=== PATIENT | male | born 2000 | race Caucasian/White ===

== ENCOUNTER 2020-11-03 13:09 | Outpatient (REF) | payer BC, SELFPAY | END 2020-11-03 13:10 | disposition home or self-care (01) | LOC: HO.LAB 13:09 | PROVIDERS: Visit Provider Internal Medicine | DX: Z20.822 Contact with and (suspected) exposure to COVID-19 (principal) | CPT/HCPCS: 36415; C9803; U0003 ==

== ENCOUNTER 2022-11-27 12:09 | Outpatient (REF) | payer BC, SELFPAY ==
[2022-11-27 14:50] LABS: Adenovirus F 40/41 Not Detected (Not Detect.); Astrovirus Not Detected (Not Detect.); Cryptosporidium Not Detected (Not Detect.); Cyclospora cayetanensis Not Detected (Not Detect.); E. coli EAEC Not Detected (Not Detect.); E. coli EPEC Not Detected (Not Detect.); E. coli ETEC Detected (Not Detect.); E. coli STEC Not Detected (Not Detect.); Entamoeba histolytica Not Detected (Not Detect.); Giardia lamblia Not Detected (Not Detect.); Norovirus GI/GII Not Detected (Not Detect.); Plesiomonas shigelloides Not Detected (Not Detect.); Rotavirus A Not Detected (Not Detect.); Salmonella Not Detected (Not Detect.); Sapovirus Not Detected (Not Detect.); Shigella sp./EIEC Not Detected (Not Detect.); Vibrio Not Detected (Not Detect.); Vibrio Cholerae Not Detected (Not Detect.); Yersinia enterocolitica Not Detected (Not Detect.)
[2022-11-27 15:03] LABS: Campylobacter Detected (Not Detect.)
== END 2022-11-27 12:10 | disposition home or self-care (01) ==
LOC: HO.LNP 12:09
PROVIDERS: Visit Provider Nurse Practitioner Family
DX: R19.7 Diarrhea, unspecified (principal)
CPT/HCPCS: 87507

== ENCOUNTER → 2022-12-11 13:32 | Outpatient (BNVA) | payer OTHER, SELFPAY | PROVIDERS: Visit Provider Physician Assistant Medical | DX: S50.852A Superficial foreign body of left forearm, initial encounter (principal); W45.8XXA Other foreign body or object entering through skin, initial encounter | CPT/HCPCS: 73090; 99203 ==

== ENCOUNTER → 2022-12-18 09:51 | Outpatient (BNVA) | payer OTHER, SELFPAY | PROVIDERS: Visit Provider Physician Assistant Medical | DX: M60.232 Foreign body granuloma of soft tissue, not elsewhere classified, left forearm (principal) | CPT/HCPCS: 99213 ==

== ENCOUNTER → 2022-12-20 08:53 | Outpatient (BNVA) | payer OTHER, SELFPAY | PROVIDERS: Visit Provider Surgery | DX: M79.5 Residual foreign body in soft tissue (principal) | CPT/HCPCS: 99202 ==

== ENCOUNTER → 2024-06-10 08:23 | Outpatient (BNVA) | payer OTHER, SELFPAY | PROVIDERS: Visit Provider Physician Assistant Medical | DX: S60.021A Contusion of right index finger without damage to nail, initial encounter (principal); S60.031A Contusion of right middle finger without damage to nail, initial encounter; W22.8XXA Striking against or struck by other objects, initial encounter | CPT/HCPCS: 73110; 73130; 99203 ==

== ENCOUNTER → 2024-07-01 07:57 | Outpatient (BNVA) | payer OTHER, SELFPAY | PROVIDERS: PCP Physician Assistant; Visit Provider Physician Assistant Medical | DX: S60.021D Contusion of right index finger without damage to nail, subsequent encounter (principal); S60.031D Contusion of right middle finger without damage to nail, subsequent encounter; W22.8XXD Striking against or struck by other objects, subsequent encounter | CPT/HCPCS: 99213 ==

== ENCOUNTER → 2024-07-22 07:53 | Outpatient (BNVA) | payer OTHER, SELFPAY | PROVIDERS: PCP Physician Assistant; Visit Provider Physician Assistant Medical | DX: S60.021D Contusion of right index finger without damage to nail, subsequent encounter (principal); S60.031D Contusion of right middle finger without damage to nail, subsequent encounter; W22.8XXD Striking against or struck by other objects, subsequent encounter | CPT/HCPCS: 99213 ==

== ENCOUNTER 2024-07-23 07:30 | Outpatient (RCR) | payer OTHER, SELFPAY ==
--- NOTE | 2024-06-25 08:50 | MHC.OT.EP ---
[address] [phone] Occupational Therapy Plan of Care Patient Name: Kedar Blevins Date of Evaluation: 06/25/24 Diagnosis: Right Hand Contusion Pain Location: Pain free at rest 7/10 sharp pain w/ forceful use Constant pain while working Tenderness over volar D2 MCP Pain Score: 6 Pain Scale Used: Numeric (0 - 10) Aggravating Factors: Gripping, forceful use Alleviating Factors: Rest Assessment: 24 yo male was at work, using a heavy steel bar at work to clean a drain, injured finger w/ persistent pain in finger, worsening over the past couple months. He was seen in [facility], x-ray (-) for acute fracture. He has been referred to OT for conservative management of right hand strain/contusion. On assessment today, he has good range in index finger, mild edema noted volarly w/ decreased gross grasp (98lb right 125lb left) and tenderness over volar index base. We will continue hand therapy for management of pain and inflammation w/ goal of full pain free use of right hand w/ work and home tasks. Frequency and Duration: The patient will be seen 2x/wk for 3 weeks Short Term Goals: Pt to report ease w/ gripping work tools Pt to demo gross grasp >120lb w/ minimal discomfort Ind w/ heat/cold modalities Ind w/ self massage Nursing Home Goals: Treatment Plan: Therapeutic Exercise Therapeutic Activity Home Exercise Program Splinting Patient Education Edema Control ADL Training Ultrasound Paraffin Fluidotherapy MHP Cold Packs Joint Mobilization Soft Tissue Mobilization Consider nighttime MCP block orthosis for rest Electronically Signed By: DONNELL Huynh/L CHT Please Sign and return to therapist. Thank you once again for your referral.
--- NOTE | 2024-08-11 11:49 | MHC.OT.DC ---
[address] [phone] F: [phone] Occupational Therapy Discharge Note Patient Name: Kedar Blevins Provider: Shobha Correa PA-C Diagnosis: Right Hand Contusion Date of Evaluation: 06/25/24 Date of Discharge: 08/11/24 Treatments to Date: 9 Discharge Status: Recommend MD Follow-up Discharge Summary: Kedar was referred to OT w/ right hand contusion. He has been doing fairly well w/ modifications and resting digit/hand, but continued to have pain present that has been limiting work and daily activities.. He continues to have lower relationship counselor strength with no significant manager exchange past couple weeks. He has been referred to a hand surgeon and we will d/c from OT services at this time pending further recommendations. Electronically Signed By: Nessa Lanier OTR/Saniya CHT Please Sign and return to therapist, thank you for your referral.
== END 2024-08-11 11:50 | disposition home or self-care (01) ==
LOC: HO.OT 07:30
PROVIDERS: PCP Physician Assistant; Visit Provider Physician Assistant Medical
DX: S60.221D Contusion of right hand, subsequent encounter (principal)
CPT/HCPCS: 97035; 97110; 97140; 97165; 97760

== ENCOUNTER 2024-08-24 08:16 | Outpatient (AMB) | payer OTHER, SELFPAY ==
--- NOTE | 2024-08-24 08:18 | A.OFFVIS_ITS ---
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 Patient was at work on 12/14/23, he was using a prybar to unclog a drain when it smashed at the base 2nd and 3rd metacarpal. Patient was initially seen with the [facility] who prescribed a of OT and use of splint. Patient reports that splinting was mildly helpful for the first 2 weeks of use but seems as though he has plateaued, but has persistent pain and weakness of the 2nd & 3rd digits. Denies numbness and tingling. He also mentions about a 5 year history of intermittent bilateral hand cramping, when his hands cramp they remain locked for about 2 minutes before they release. This did happen for quite some time prior to this work injury, but he has had no previous treatment/evaluation for this. We did discuss possibly meeting with PCP for bloodwork. He is currently at work, with instructions of limiting use of the right hand with occasional rest periods. He is not taking anything for his pain. 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 The patient reports that on that date, he was looking to unclog a pipe, in the instrument that he was using slammed back onto his right hand, particularly the 2nd and 3rd MCP joints of the right hand. Patient reports that he began to experience significant discomfort at that time, and then he felt this restricted his hand range of motion significantly. The patient states that for quite some time, he was not evaluated as he felt this would resolve on its own. However, the patient was still experiencing significant pain approximately 3 months later. Patient was evaluated at the [facility], where x-rays were taken and were negative. Today, the patient reports that the pain in the right 3rd metacarpal and MCP joint has resolved completely, but that he is still experiencing significant discomfort in the 2nd MCP joint. Patient reports numbness or tingling of the right hand, worst when he is working overhead. No other acute complaints or concerns at this time. [facility] Medical History (Updated 08/24/24 @ 12:41 by JENIFER Plata) Esophagitis (~09/2022) Social History (Updated 08/24/24 @ 08:28 by Almaz Rivas CMA) Alcohol intake: never Patient Tobacco Use Status: Never used Tobacco Current occupational status: employed Current occupation: Backend Developer Review of Systems Const All systems reviewed & are unremarkable except as noted in HPI and below Physical Exam Vital Signs: BMI result Body Mass Index 23.1 Extrem Other: Patient is alert, oriented, and in no acute distress. Neuro: Normal sensation of the tips of all digits of the [] hand at this time Vascular: Cap refill brisk Pain: Patient reports mild to moderate tenderness to palpation of the volar 2nd MCP joint and distal 2nd metacarpal of the right hand No tenderness to palpation of the 3rd metacarpal head, shaft, or MCP joint ROM: Patient is able to make a closed fist and extend all digits Skin: No lacerations or abrasions. General: No ecchymosis, erythema, or evidence of infection. Psych: Appears grossly normal Affect normal Attitude cooperative Results Reviewed Results Reviewed: X-rays obtained in the [facility] and independently reviewed by me, Roel Joyce PA-C, demonstrate no fracture or acute bony abnormality of the right hand. Assessment & Plan Assessment & Plan (1) Pain in right hand: Code(s): M79.641 - Pain in right hand Category: Medical (2) Numbness and tingling of right hand: Code(s): R20.0 - Anesthesia of skin; R20.2 - Paresthesia of skin Category: Medical Plan 1. Right hand pain Worst on the 2nd metacarpal head, distal metacarpal shaft, and MCP joint Ongoing since injury in November Patient is educated that I feel that this injury is likely a crush injury of the soft tissues of the right hand, and then he is having a prolonged recovery, as can be expected with crush injuries. At this time, patient was referred to occupational therapy for range of motion, strengthening of the right hand, as the patient felt that this did help him when he went earlier this year Patient will follow-up in 6 weeks for [id number] check and reassessment, sooner with any acute concerns 2. Numbness and tingling of right hand Symptoms intermittent, daily, worse at night Worst with overhead motion Patient is referred for EMG and nerve conduction study to assess health of the right upper extremity Patient is amenable to this plan Patient will follow-up after EMG and nerve conduction study for results review and discussion of further treatment options if indicated, sooner with any acute concerns Orders: Orders OT Evaluation and Treatment Today M79.641 - Pain in right hand NE nerve conduction velocity Today R20.0 - Anesthesia of skin, R20.2 - Paresthesia of skin NE electromyogram (EMG) Today R20.0 - Anesthesia of skin, R20.2 - Paresthesia of skin Coding Level of Care Code New Pt Level 3 (78274) Diagnoses Pain in right hand M79.641 Numbness and tingling of right hand R20.0; R20.2
[2024-08-24 08:25] VITALS: BMI 23.1
== END 2024-08-24 08:52 | disposition home or self-care (01) ==
LOC: HO.HOS 08:17
PROVIDERS: PCP Physician Assistant
DX: M79.641 Pain in right hand (principal); R20.0 Anesthesia of skin; R20.2 Paresthesia of skin
CPT/HCPCS: 99203

== ENCOUNTER → 2024-08-24 08:16 | Outpatient (BNVA) | payer OTHER, SELFPAY | PROVIDERS: PCP Physician Assistant | DX: M79.641 Pain in right hand (principal); R20.0 Anesthesia of skin; R20.2 Paresthesia of skin | CPT/HCPCS: 99202 ==

== ENCOUNTER → 2024-08-30 08:27 | Outpatient (BNVA) | payer OTHER, SELFPAY | PROVIDERS: PCP Physician Assistant; Visit Provider Physician Assistant Medical | DX: S00.83XA Contusion of other part of head, initial encounter (principal); W20.8XXA Other cause of strike by thrown, projected or falling object, initial encounter | CPT/HCPCS: 12001; 70200; 99204 ==

== ENCOUNTER 2024-09-15 08:18 | Outpatient (REF) | payer OTHER, SELFPAY ==
--- NOTE | 2024-09-15 08:21 | EMG_ITS ---
Chief complaint: Right hand/forearm pain, right hand numbness Reason for referral: Evaluate for Carpal Tunnel Syndrome or radiculopathy Referred by: Roel BURGESS Procedure done: Right upper extremity NCS/EMG Precautions and/or limitations: None The limb temperature was monitored continuously and remained between 32-36 degrees C during the performance of the NCS. Nerve Conduction Studies Anti Sensory Summary Table ?Stim Site NR Onset (ms) Norm Onset (ms) Peak (ms) Norm Peak (ms) O-P Amp (?V) Norm O-P Amp Site1 Site2 Delta-0 (ms) Dist (cm) Shad (m/s) Norm Shad (m/s) Right Median Anti Sensory (2nd Digit) Wrist ? 2.8 3.5 <3.6 29.9 >10 Wrist 2nd Digit 2.8 14.0 50 Right Ulnar Anti Sensory (5th Digit) Wrist ? 2.6 3.4 <3.7 26.9 >15.0 Wrist 5th Digit 2.6 14.0 54 Motor Summary Table ?Stim Site NR Onset (ms) Norm Onset (ms) O-P Amp (mV) Norm O-P Amp iAmp (mV) Amp (1st) (%) Site1 Site2 Delta-0 (ms) Dist (cm) Shad (m/s) Norm Shad (m/s) Right Median Motor (Abd Poll Brev) Wrist ? 3.7 <3.9 18.2 >4.5 21.6 100.0 Elbow Wrist 4.3 25.0 58 >45 Elbow ? 8.0 17.6 21.5 96.7 Right Ulnar Motor (Abd Dig Minimi) Wrist ? 3.0 <3.0 11.7 >5 13.5 100.0 B Elbow Wrist 4.4 20.5 47 >45 B Elbow ? 7.4 11.1 13.1 94.9 A Elbow B Elbow 1.8 10.0 56 >45 A Elbow ? 9.2 10.7 12.6 91.5 Comparison Summary Table ?Stim Site NR Peak (ms) Norm Peak (ms) P-T Amp (?V) Site1 Site2 Delta-P (ms) Norm Delta (ms) Right Median/Radial Dig I Comparison (Digit 1 - 10cm) Median ? 2.8 <2.9 31.1 Median Radial 0.1 Radial ? 2.7 <2.8 13.5 EMG ?Side Muscle Nerve Root Ins Act Fibs Psw Amp Dur Poly Recrt Int Pat Comment Right 1stDorInt Ulnar C8-T1 Nml Nml Nml Nml Nml 0 Nml Complete Right FlexCarRad Median C6-7 Nml Nml Nml Nml Nml 0 Nml Complete Right Biceps Musculocut C5-6 Nml Nml Nml Nml Nml 0 Nml Complete Right Triceps Radial C6-7-8 Nml Nml Nml Nml Nml 0 Nml Complete Right Deltoid Axillary C5-6 Nml Nml Nml Nml Nml 0 Nml Complete FINDINGS: All motor and sensory nerves tested showed normal latencies, amplitudes and conduction velocities. Concentric needle EMG was performed in selected muscles of the right upper extremity. Study did not reveal signs of electric abnormalities as shown in the table above. IMPRESSION: 1. This is a normal study. 2. There is no electrodiagnostic evidence for median neuropathy, ulnar neuropathy, brachial plexopathy, or cervical radiculopathy. Thank you for your kind referral. Eli Shannon MD, TERELL Board Certified, [place] Board of [employer] and Rehabilitation (ABPMR) Board Certified, [place] Board of Electrodiagnostic Medicine (ABEM) CODIN 82206 MTDD
== END 2024-09-15 08:19 | disposition home or self-care (01) ==
LOC: HO.NEURO 08:18
DX: R20.0 Anesthesia of skin (principal); R20.2 Paresthesia of skin
CPT/HCPCS: 95886; 95909

== ENCOUNTER → 2024-09-15 08:21 | Outpatient (BNV) | payer OTHER, SELFPAY | PROVIDERS: Visit Provider Physical Medicine & Rehabilitation | DX: M79.641 Pain in right hand (principal); R20.0 Anesthesia of skin; R20.2 Paresthesia of skin | CPT/HCPCS: 95886; 95909 ==

== ENCOUNTER 2024-10-04 07:45 | Outpatient (RCR) | payer OTHER, SELFPAY ==
--- NOTE | 2024-09-06 12:24 | MHC.OT.EP ---
[address] [phone] Occupational Therapy Plan of Care Patient Name: Kedar García Date of Evaluation: 09/06/24 Diagnosis: R IF pain/ volar side Pain Location: ulnar side of R volar plate of IF Pain Score: 5 Pain Scale Used: Numeric (0 - 10) Aggravating Factors: gripping , sore w/ AROM Alleviating Factors: Assessment: Frequency and Duration: The patient will be seen 4 weeks Short Term Goals: Pt will be complaint w/ HEP Pt will be complaint w/ weaning from orthoses Pt will report 4/10 pain w/ activity Barback Goals: Pt will have a R clinical research nurse strength of 90lbs Pt will report 2/10 pain w/ activity Pt will make a pain free composite fist Treatment Plan: Therapeutic Exercise Therapeutic Activity Home Exercise Program Splinting Neuro Re-ed Patient Education Desensitization/Sensory Re-ed Edema Control ADL Training Ultrasound NMES Iontophoresis Paraffin Fluidotherapy MHP Cold Packs Joint Mobilization Soft Tissue Mobilization Kinesiotaping Other (see comments) Electronically Signed By: Tabitha Stringer OTR/L Please Sign and return to therapist. Thank you once again for your referral.
--- NOTE | 2024-09-06 12:56 | MHC.OT.EP ---
[address] [phone] Occupational Therapy Plan of Care Patient Name: Kedar García Date of Evaluation: 09/06/24 Diagnosis: R IF pain/ volar side Pain Location: ulnar side of R volar plate of IF Pain Score: 5 Pain Scale Used: Numeric (0 - 10) Aggravating Factors: gripping , sore w/ AROM Alleviating Factors: Assessment: Frequency and Duration: The patient will be seen 4 weeks Short Term Goals: Pt will be complaint w/ HEP Pt will be complaint w/ weaning from orthoses Pt will report 4/10 pain w/ activity Strategic Consultant Goals: Pt will have a R front end mechanic strength of 90lbs Pt will report 2/10 pain w/ activity Pt will make a pain free composite fist Treatment Plan: Therapeutic Exercise Therapeutic Activity Home Exercise Program Splinting Neuro Re-ed Patient Education Desensitization/Sensory Re-ed Edema Control ADL Training Ultrasound NMES Iontophoresis Paraffin Fluidotherapy MHP Cold Packs Joint Mobilization Soft Tissue Mobilization Kinesiotaping Other (see comments) Electronically Signed By: Tabitha Stringer OTR/L Please Sign and return to therapist. Thank you once again for your referral.
--- NOTE | 2024-09-07 08:15 | MHC.OT.EP ---
[address] [phone] Occupational Therapy Plan of Care Patient Name: Kedar García Date of Evaluation: 09/06/24 Diagnosis: R IF pain/ volar side Pain Location: ulnar side of R volar plate of IF Pain Score: 5 Pain Scale Used: Numeric (0 - 10) Aggravating Factors: gripping , sore w/ AROM Alleviating Factors: Assessment: Pt is a 24 yr. old R hand dominant male who injured his R hand at work while using a kaibab bar in November of 2023. He reports believing at first the pain would improve and eventually go away , and when it didn't he was referred to [facility] and then eventually to the Ortho at [facility]. He had a round of OT Therapy in July which provided some relief (but minimal) an orthoses was fabricated at this time which he continues to wear at work under his glove. Pt would benefit from skilled OT therapy to increase pain free ROM, strength, and functional use of his dominant hand. 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 Thank you once again for your referral.
--- NOTE | 2024-12-10 09:42 | MHC.OT.DC ---
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
== END 2024-12-10 09:42 | disposition home or self-care (01) ==
LOC: HO.OT 07:45
PROVIDERS: PCP Physician Assistant
DX: M79.641 Pain in right hand (principal)
CPT/HCPCS: 97033; 97035; 97110; 97140; 97165

== ENCOUNTER 2024-10-06 08:10 | Outpatient (REF) | payer OTHER, SELFPAY ==
--- NOTE | ~2024-10-06 | XR_ITS ---
EXAMINATION: XR HAND 3 OR MORE VIEWS RIGHT HISTORY: M79.641 - Pain in right hand COMPARISON: Comparison is made with the prior examination dated 06/10/2024. FINDINGS: Four views of the right hand are submitted. Osseous mineralization is normal. There is no fracture or dislocation. The joint spaces are preserved. The soft tissues are unremarkable. XR/XR hand RT min 3V IMPRESSION: Unremarkable examination of the right hand. Electronically signed by: Bhavin Jack MD 11/02/2024 03:04 PM LATONIA WATSON
== END 2024-10-06 08:11 | disposition home or self-care (01) ==
LOC: HO.HOSX 08:10
PROVIDERS: PCP Physician Assistant
DX: M79.641 Pain in right hand (principal); M77.8 Other enthesopathies, not elsewhere classified
CPT/HCPCS: 20550; 73130; 99212; J1100; J2003

== ENCOUNTER 2024-10-06 08:10 | Outpatient (AMB) | payer OTHER, SELFPAY ==
--- NOTE | 2024-10-06 08:41 | MHC.OFFVIS ---
Vital Signs 10/06/24 08:42 Height 6 ft 1 in Weight 175 lb BMI 23.1 Handedness Right Intake Visit Reasons: OV: Right hand pain DOI 12/14/23 Intake Note: Kedar is a 24 year old right hand dominant male who presents today for a follow up of his right hand pain and EMG review, DOI: 12/14/23. Patient had EMG done on 09/15/2024. Patient reports he still has soreness most days, some days it is more sore than others. He expresses he does not feel OT has helped him or changed much as much as he wanted it to. He states OT gave him a brace to use while he is working however it is not helping as much as he thinks it should. Allergies No Known Allergies [No Known Allergies*] Allergy (Unverified 10/06/24 08:42) HPI HPI OV: Right hand pain DOI 12/14/23: Details: Patient is a 24-year-old male who presents for follow-up evaluation of right hand pain after a crush injury, date of injury 12/14/2023. Today, the patient reports that OT has helped symptoms very slightly, but he still experiences significant discomfort on the volar aspect of the MCP joint of the right index finger. Patient denies any numbness or tingling in the right upper extremity. Patient denies any locking or catching of any of the digits of the right hand. No other acute complaints or concerns at this time. COUNTS INCLUDE 234 BEDS AT THE [facility] Medical History (Updated 10/06/24 @ 11:09 by JENIFER Plata) Esophagitis (~09/2022) Social History Alcohol intake: never Patient Tobacco Use Status: Never used Tobacco Current occupational status: employed Current occupation: [employer] Review of Systems Const All systems reviewed & are unremarkable except as noted in HPI and below Physical Exam Vital Signs: BMI result Body Mass Index 23.1 Extrem Other: Patient is alert, oriented, and in no acute distress. Neuro: Normal sensation of the tips of all digits of the [] hand at this time Vascular: Cap refill brisk Pain: Patient reports mild to moderate tenderness to palpation of the volar 2nd MCP joint of the right hand No tenderness to palpation of the 3rd metacarpal head, shaft, or MCP joint ROM: Patient is able to make a closed fist and extend all digits No visible or palpable locking and catching of any of the digits of the right Skin: No lacerations or abrasions. General: No ecchymosis, erythema, or evidence of infection. Psych: Appears grossly normal Affect normal Attitude cooperative Office Procedures Joint Inj/Aspir; Non-Pain Clin Joint Injection/Drain Prep: site was prepped using aseptic technique Procedure: The patient tolerated the procedure well, but had some pain with the injection and there was some relief with the local anesthesia Trigger Finger Trigger Finger Index Joint Injection: Right Index Coding Procedure code (CPT) selection complete Results Reviewed Results Reviewed: X-rays obtained in the office today and independently reviewed by me, Roel Joyce PA-C, demonstrate no fracture or acute bony abnormality of the right. Assessment & Plan Assessment & Plan (1) Flexor tendinitis of hand: Code(s): M77.8 - Other enthesopathies, not elsewhere classified Category: Medical Plan 1. Pre trigger flexor tendinitis of the right index finger Patient is educated about this condition Patient is educated about the treatment options available Patient would like to proceed with steroid injection Injection #1: The risks and benefits of a steroid injection including but not limited to risk of damage to blood vessels, nerves, tendons, infection, skin bleaching, failure to improve symptoms, increased pain, and possible need for further injections or other intervention were discussed with the patient and the patient wishes to proceed with the steroid injection. Once consent was obtained, I aseptically prepped the area over the A1 charles of the flexor tendon sheath of the right index finger. I then injected the flexor tendon sheath with a combination of 1 mL of dexamethasone (4mg/ml), and 1% lidocaine. The patient tolerated the procedure well with no complications. If the patient continues to have pain 4-6 weeks following this injection, they may call to schedule appointment to discuss alternative treatment options Follow-up prn Orders: Orders XR hand RT min 3V Today M79.641 - Pain in right hand Coding Level of Care Code Est Pt Level 3 (12273) Diagnoses Flexor tendinitis of hand M77.8 CPT Codes Trigger Finger ([id number])
[2024-10-06 08:42] VITALS: BMI 23.1
== END 2024-10-06 09:47 | disposition home or self-care (01) ==
PROVIDERS: PCP Physician Assistant
DX: M77.8 Other enthesopathies, not elsewhere classified (principal); M65.321 Trigger finger, right index finger
CPT/HCPCS: 20550; 99213

== ENCOUNTER → 2024-10-06 08:32 | Outpatient (BNV) | payer OTHER, SELFPAY | PROVIDERS: PCP Physician Assistant; Visit Provider Radiology Diagnostic Radiology | DX: M79.641 Pain in right hand (principal) | CPT/HCPCS: 73130 ==